=== PATIENT | female | born 1965 | race Caucasian/White ===

== ENCOUNTER 2017-12-10 13:28 | Observation (INO) | payer BC, OTHER ==
[2017-12-10 14:12] LABS: Basophils # (A) 0.1 k/uL (0-0.2); Basophils % (A) 1 %; Eosinophils # (A) 0.1 k/uL (0-0.7); Eosinophils % (A) 2 %; HCT 39.2 % (34.0-46.0); HGB 13.2 gm/dL (11.4-16.0); Lymphocytes # (A) 1.7 k/uL (1.0-4.8); Lymphocytes % (A) 20 %; MCH 30.3 pg (25.0-35.0); MCHC 33.6 g/dL (31.0-37.0); MCV 90.3 fL (80.0-100.0); Mean Platelet Volume 7.5; Monocytes # (A) 0.4 k/uL (0-1.0); Monocytes % (A) 5 %; Neutrophils # (A) 6.1 k/uL (1.3-7.7); Neutrophils % (A) 71 %; Platelet Count 222 k/uL (150-450); RBC 4.34 m/uL (3.80-5.40); RDW 12.8 % (11.5-15.5); WBC 8.6 k/uL (3.8-10.6)
[2017-12-10 14:22] LABS: INR 0.9 (<1.2); Partial Thromboplastin Time 22.4 sec (22.0-30.0); Prothrombin Time 9.3 sec (9.0-12.0)
[2017-12-10 14:27] LABS: Albumin 4.2 g/dL (3.5-5.0); Calcium 9.4 mg/dL (8.4-10.2); Total Bilirubin 0.7 mg/dL (0.2-1.3); Total Protein 7.1 g/dL (6.3-8.2)
[2017-12-10 14:59] LABS: Creatine Kinase 51 U/L (30-135)
[2017-12-10 15:11] LABS: Creatine Kinase MB 0.4 ng/mL (0.0-2.4); Troponin I <0.012 ng/mL (0.000-0.034)
--- NOTE | 2017-12-10 17:10 | ED ---
General Adult HPI - General Chief complaint: Chest Pain Stated complaint: SOB/Chest Pains Time Seen by Provider: 12/10/17 16:40 Source: patient, RN notes reviewed Mode of arrival: wheelchair Limitations: no limitations - History of Present Illness Initial comments: Patient is a 52-year-old female presenting to the emergency room today with chief complaint of chest pain that began 2 nights ago. Patient denies any injury or trauma to the area. She does admit that seems to be worse with certain movements at time. She states today she was at a park show when she was up walking around seemed like symptoms were increasing so she decided to come here to the emergency room. She states it's a constant pain but at times increases and is sharp. She states she did feel some radiation going towards the back of her neck area. Patient states she's never had similar symptoms quite like this. She states she did try ibuprofen no relief. Patient does admit that it's worse when she takes a deep breath at times. She denies any other complaints or symptoms currently. Patient denies any recent fever, chills , back pain, abdominal pain, nausea or vomiting, numbness or tingling, dysuria or hematuria, constipation or diarrhea, headaches or visual changes, or any other complaints. - Related Data Home Medications Medication Instructions Recorded Confirmed Lisinopril [Zestril] 10 mg PO DAILY 12/10/17 12/10/17 Allergies Allergy/AdvReac Type Severity Reaction Status Date / Time No Known Allergies Allergy Verified 12/10/17 13:36 Review of Systems ROS Statement: Those systems with pertinent positive or pertinent negative responses have been documented in the HPI. ROS Other: All systems not noted in ROS Statement are negative. Past Medical History Past Medical History: No Reported History History of Any Multi-Drug Resistant Organisms: None Reported Additional Past Surgical History / Comment(s): mitral valve repair Past Psychological History: No Psychological Hx Reported Smoking Status: Never smoker Past Alcohol Use History: Occasional Past Drug Use History: None Reported General Exam - General Exam Comments Initial Comments: General: The patient is awake and alert, in no distress, and does not appear acutely ill. Eye: Pupils are equal, round and reactive to light, extra-ocular movements are intact. No nystagmus. There is normal conjunctiva bilaterally. No signs of icterus. Ears, nose, mouth and throat: There are moist mucous membranes and no oral lesions. Neck: The neck is supple, there is no tenderness or JVD. Cardiovascular: There is a regular rate and rhythm. No murmur, rub or gallop is appreciated. Mild tenderness on palpation to the anterior chest wall. Respiratory: Lungs are clear to auscultation, respirations are non-labored, breath sounds are equal. No wheezes, stridor, rales, or rhonchi. Musculoskeletal: Normal ROM, no tenderness. Strength 5/5. Sensation intact. Pulses equal bilaterally 2+. Neurological: A&O x 3. CN II-XII intact, There are no obvious motor or sensory deficits. Coordination appears grossly intact. Speech is normal. Skin: Skin is warm and dry and no rashes or lesions are noted. Psychiatric: Cooperative, appropriate mood & affect, normal judgment. Limitations: no limitations Course Vital Signs 12/10/17 12/10/17 12/10/17 13:31 17:10 18:49 Temperature 98.2 F Pulse Rate 86 76 Pulse Rate [ 87 Apical] Respiratory 18 18 Rate Blood Pressure 121/80 125/77 O2 Sat by Pulse 98 99 Oximetry EKG Findings - EKG Comments: EKG Findings:: EKG performed at 1348: Normal sinus rhythm at 84 beats per minute. KS interval 116. QRS 86. QT/QTC 386/456. No acute ST changes. Medical Decision Making - Medical Decision Making Patient reexamined at this time still experiencing some chest discomfort. Patient's labs been reviewed and negative cardiac enzymes. EKG shows no acute changes. Patient's d-dimer was elevated and a CAT scan was performed and obtained showing no evidence of PE. No other acute abnormality on computed tomography scan. Patient will be admitted for observation and serial cardiac enzymes with consult cardiology. Case was discussed with admitting physician Dr. Dimas who will admit The patient. - Lab Data Result diagrams: 12/10/17 13:55 12/10/17 13:55 Lab Results 12/10/17 12/10/17 12/10/17 Range/Units 13:55 13:55 13:55 WBC 8.6 (3.8-10.6) k/uL RBC 4.34 (3.80-5.40) m/uL Hgb 13.2 (11.4-16.0) gm/dL Hct 39.2 (34.0-46.0) % MCV 90.3 (80.0-100.0) fL MCH 30.3 (25.0-35.0) pg MCHC 33.6 (31.0-37.0) g/dL RDW 12.8 (11.5-15.5) % Plt Count 222 (150-450) k/uL Neutrophils % 71 % Lymphocytes % 20 % Monocytes % 5 % Eosinophils % 2 % Basophils % 1 % Neutrophils # 6.1 (1.3-7.7) k/uL Lymphocytes # 1.7 (1.0-4.8) k/uL Monocytes # 0.4 (0-1.0) k/uL Eosinophils # 0.1 (0-0.7) k/uL Basophils # 0.1 (0-0.2) k/uL PT (9.0-12.0) sec INR (<1.2) APTT (22.0-30.0) sec D-Dimer (<0.60) mg/L FEU Sodium 140 (137-145) mmol/L Potassium 4.0 (3.5-5.1) mmol/L Chloride 107 (98-107) mmol/L Carbon Dioxide 23 (22-30) mmol/L Anion Gap 10 mmol/L BUN 17 (7-17) mg/dL Creatinine 0.96 (0.52-1.04) mg/dL Est GFR (CKD-EPI)AfAm 79 (>60 ml/min/1.73 sqM) Est GFR (CKD-EPI)NonAf 69 (>60 ml/min/1.73 sqM) Glucose 114 H (74-99) mg/dL Calcium 9.4 (8.4-10.2) mg/dL Total Bilirubin 0.7 (0.2-1.3) mg/dL AST 18 (14-36) U/L ALT 21 (9-52) U/L Alkaline Phosphatase 60 (38-126) U/L Total Creatine Kinase 51 (30-135) U/L CK-MB (CK-2) 0.4 (0.0-2.4) ng/mL CK-MB (CK-2) Rel Index 0.8 Troponin I <0.012 (0.000-0.034) ng/mL Total Protein 7.1 (6.3-8.2) g/dL Albumin 4.2 (3.5-5.0) g/dL 12/10/17 12/10/17 Range/Units 13:55 13:55 WBC (3.8-10.6) k/uL RBC (3.80-5.40) m/uL Hgb (11.4-16.0) gm/dL Hct (34.0-46.0) % MCV (80.0-100.0) fL MCH (25.0-35.0) pg MCHC (31.0-37.0) g/dL RDW (11.5-15.5) % Plt Count (150-450) k/uL Neutrophils % % Lymphocytes % % Monocytes % % Eosinophils % % Basophils % % Neutrophils # (1.3-7.7) k/uL Lymphocytes # (1.0-4.8) k/uL Monocytes # (0-1.0) k/uL Eosinophils # (0-0.7) k/uL Basophils # (0-0.2) k/uL PT 9.3 (9.0-12.0) sec INR 0.9 (<1.2) APTT 22.4 (22.0-30.0) sec D-Dimer 3.25 H (<0.60) mg/L FEU Sodium (137-145) mmol/L Potassium (3.5-5.1) mmol/L Chloride (98-107) mmol/L Carbon Dioxide (22-30) mmol/L Anion Gap mmol/L BUN (7-17) mg/dL Creatinine (0.52-1.04) mg/dL Est GFR (CKD-EPI)AfAm (>60 ml/min/1.73 sqM) Est GFR (CKD-EPI)NonAf (>60 ml/min/1.73 sqM) Glucose (74-99) mg/dL Calcium (8.4-10.2) mg/dL Total Bilirubin (0.2-1.3) mg/dL AST (14-36) U/L ALT (9-52) U/L Alkaline Phosphatase (38-126) U/L Total Creatine Kinase (30-135) U/L CK-MB (CK-2) (0.0-2.4) ng/mL CK-MB (CK-2) Rel Index Troponin I (0.000-0.034) ng/mL Total Protein (6.3-8.2) g/dL Albumin (3.5-5.0) g/dL Disposition Clinical Impression: Chest pain Disposition: ADMITTED IP TO THIS HOSP Condition: Good Is patient prescribed a controlled substance at d/c from ED?: No Referrals: Nonstaff,Physician [Primary Care Provider] - 1-2 days Time of Disposition: 18:40
--- NOTE | 2017-12-10 18:16 | CT ---
CT CHEST FOR PULMONARY EMBOLISM. EXAMINATION TYPE: CT angio chest DATE OF EXAM: 12/10/2017 INDICATION: Chest pain. CT DLP: 536 mGycm, Automated exposure control for dose reduction was used. CONTRAST: Patient injected with 74ml mL of Isovue 370. COMPARISON: None TECHNIQUE: CT of the chest is performed on a spiral scan at 2 mm thick sections. Study is performed with intravenous contrast timed for evaluation for pulmonary embolism. This will limit additional po rtions of the evaluation. 3-D MIP images reconstructed by the technologist are reviewed on the compu ter in the coronal and sagittal planes. FINDINGS: No persistent filling defects are evident to suggest an acute pulmonary embolism. No mediastinal or hilar adenopathy enlarged by CT criteria is evident. The ascending aorta diameter at the level of the main pulmonary artery is 3.1 cm. The main pulmonary artery diameter at the bifur cation is 2.8 cm. Some mild compressive atelectasis is within the dependent portion of the right lung. Limited CT section through the upper abdomen are unremarkable. IMPRESSIONS: 1. No acute pulmonary embolism.
--- NOTE | 2017-12-10 18:26 | XR ---
EXAMINATION TYPE: XR chest 2V DATE OF EXAM: 12/10/2017 COMPARISON: None INDICATION: Pain TECHNIQUE: Frontal and lateral views of the chest are obtained. FINDINGS: The heart size is normal. The pulmonary vasculature is normal. Minimal tenting of the right diaphragm is present compatible with atelectasis. There is a rib resecti on of posterior sixth rib.. IMPRESSION: 1. Minimal subsegmental atelectasis right base
[2017-12-10] MEDS ORDERED: MORPHINE SULFATE 4 MG/ML SYRINGE IVP STA (18:48)
[2017-12-10] MEDS ORDERED: NITROGLYCERIN SL TABS 0.4 MG TAB SUBLINGUAL PRN ×2 (18:49→18:54)
[2017-12-10] MEDS ORDERED: ONDANSETRON 4 MG/2 ML VIAL IVP STA (18:49)
[2017-12-10] MEDS ORDERED: ASPIRIN 81 MG PO STA (18:54)
[2017-12-10] MEDS ORDERED: SODIUM CHLORIDE 0.9% 1,000 ML IV ONE (18:54)
[2017-12-10 21:14] LABS: Creatine Kinase 43 U/L (30-135)
[2017-12-10 21:28] LABS: Creatine Kinase MB 0.4 ng/mL (0.0-2.4); Troponin I <0.012 ng/mL (0.000-0.034)
[2017-12-10] MEDS ORDERED: MORPHINE SULFATE 2 MG/ML SYRINGE IVP PRN (22:58)
--- NOTE | 2017-12-10 23:12 | HP ---
HISTORY AND PHYSICAL CHIEF COMPLAINT: A 52-year-old with pleuritic-type chest pain. HISTORY OF PRESENT ILLNESS: A 52-year-old white female, doing a lot of moving, moving to a different place, moving a lot of boxes over the past week. Her brother also had a heart attack with a stent placed a week ago. She was walking around at a park. She came to the emergency room because she said when she took a deep breath or made certain movements, she had some chest pain. It feels like pressure right under the sternum, a constant pain that at times is sharp. Never had symptoms like this before, took 3 ibuprofen, No relief. Worse when takes a deep breath. She mentions she was lifting boxes recently. No history of trauma. No nausea, vomiting, numbness, tingling, dysuria or hematuria, constipation, diarrhea, headaches or visual changes. HOME MEDICATIONS: Zestril 10 mg daily. ALLERGIES: Negative. REVIEW OF SYSTEMS: Fourteen point review of systems negative except for mentioned in HPI. PAST MEDICAL HISTORY: Hypertension, mitral valve replacement. Temp 98.2, blood pressure 120s/70s-80s, pulse 76-86, respiratory rate 16-18, O2 98%- 99%. EKG: Sinus rhythm, no ischemia. CARDIOVASCULAR: S1, S2. Lungs are clear. GI: Soft. HEMATOLOGY: Negative Homans. PSYCH: Fair mood and affect. NEUROLOGIC: Alert and oriented x3. ENDOCRINE: Weight is reviewed. CT of the chest is normal. Sodium 140, potassium 4.0, BUN is 17, creatinine 0.96. White count and hemoglobin are all normal. Troponins, CPKs are negative x2. ASSESSMENT: Atypical chest pain, rule out myocardial infarction. Cardiology is consulted. Will continue with serial troponins and order a thyroid and hemoglobin A1c. Please see further orders. MMODL / IJN: [id number] /
[2017-12-10 23:13] VITALS: BMI 27.3
[2017-12-11 02:17] LABS: Cholesterol 163 mg/dL (<200); HDL Cholesterol 53 mg/dL (40-60); LDL Cholesterol,Calculated 85 mg/dL (0-99); Triglycerides 124 mg/dL (<150)
[2017-12-11 02:25] LABS: Creatine Kinase 42 U/L (30-135)
[2017-12-11 02:36] LABS: Creatine Kinase MB 0.3 ng/mL (0.0-2.4); Troponin I <0.012 ng/mL (0.000-0.034)
[2017-12-11] MEDS ORDERED: ACETAMINOPHEN TAB 325 MG TAB PO PRN (06:49)
--- NOTE | 2017-12-11 07:46 | US ---
EXAMINATION TYPE: US gallbladder DATE OF EXAM: 12/11/2017 COMPARISON: NONE CLINICAL HISTORY: abd pain. EXAM MEASUREMENTS: Liver Length: 16.1 cm Gallbladder Wall: 0.1 cm CBD: 0.3 cm Right Kidney: 12.0 x 3.6 x 5.2 cm Midline bowel gas. Pancreas: Mostly obscured by bowel gas Liver: wnl Gallbladder: mobile echogenic focus seen in supine position, possible non shadowing stone Evidence for sonographic Mei's sign: no CBD: wnl Right Kidney: wnl The pancreas is largely obscured. The liver is normal in size without biliary dilatation. There are noncalcified gallstones present. The gallbladder wall measures 1 mm. The distal common hepa tic duct measures 3 mm. There is no sonographic Mei's sign. The right kidney is normal. IMPRESSION: PROBABLE NONSHADOWING STONES.
[2017-12-11] MEDS ORDERED: LISINOPRIL 10 MG TAB PO SCH ×2 (09:00→21:00)
--- NOTE | 2017-12-11 10:59 | US ---
EXAMINATION TYPE: US venous doppler duplex LE DATE OF EXAM: 12/11/2017 10:47 AM COMPARISON: NONE CLINICAL HISTORY: r/o DVT. SIDE PERFORMED: Bilateral TECHNIQUE: The lower extremity deep venous system is examined utilizing real time linear array sonog andreas with graded compression, doppler sonography and color-flow sonography. VESSELS IMAGED: External Iliac Vein (EIV) Common Femoral Vein Deep Femoral Vein Greater Saphenous Vein * Femoral Vein Popliteal Vein Small Saphenous Vein * Proximal Calf Veins (* superficial vessels) Right Leg: Negative for DVT Left Leg: Negative for DVT No popliteal fossa lesion is seen. IMPRESSION: THIS EXAMINATION IS NEGATIVE FOR DVT IN BOTH LEGS.
--- NOTE | 2017-12-11 11:55 | CONS ---
CONSULTATION DATE OF SERVICE: 12/11/2017. HISTORY: Mrs. Velez is a 52-year-old female, who is seen for the evaluation of chest pain. The patient gives a history that she recently moved from the [facility] to [place] and she was moving a lot of packaging and lifting things and she started having discomfort in the chest, which was in the substernal area as well as in the back and front of the chest. The pain was constant and increased with movement and breathing. She did not had any significant shortness of breath. She denied any fever or chills. The patient tried ibuprofen but it did not work very well. Subsequently she came to the emergency room. This patient has a history of mitral valve repair for mitral regurgitation in 2009, which was done at the [facility]. The patient is to be following a doctor at [facility]. HOME MEDICATIONS: Includes Zestril 10 mg daily. PAST MEDICAL HISTORY: Includes a history of mitral valve repair. SOCIAL HISTORY: Patient is a never smoker. PHYSICAL EXAMINATION: Reveals a 52-year-old female, who does not appear to be in any acute distress. The patient's blood pressure is 100/67 mmHg. The patient is afebrile, heart rate is 75 per minute, oxygen saturation is 100%. HEENT: Examination is negative. NECK: Supple. There is no increase in jugular venous pressure. Both the carotid pulses are felt. There is no bruit. CHEST: Symmetrical. HEART: First and second sounds are normal. There is no evidence of any murmur. LUNGS: Clinically clear to auscultation and percussion. ABDOMEN: Negative. EXTREMITIES: Peripheral pulses are 2+. DIAGNOSTIC STUDIES: The patient's EKG is normal. Electrolytes are normal. Three sets of troponins are normal. Patient's D-dimer was elevated up to 3.25. CT scan was negative for pulmonary embolism. FINAL IMPRESSION: 1. This patient's chest pain appears to be atypical chest pain, mostly musculoskeletal chest wall pain. There is no evidence of pulmonary embolism. 2. The patient is status post mitral valve repair. 3. The patient has elevated D-dimer which is difficult to explain. There is no clinical evidence of DVT but we will check a venous duplex study to make sure there is no evidence of any DVT. If the venous duplex study is negative, she will be evaluated with a stress echo and echocardiographic study. If the stress echo study is negative, patient can be discharged home tomorrow. MMODL / IJN: [id number] /
[2017-12-11] MEDS: ASPIRIN 325 MG TAB PO SCH (12:38)
[2017-12-11] MEDS ORDERED: MORPHINE ORAL SOLN 10 MG/5 ML CUP PO PRN (21:15)
--- NOTE | 2017-12-11 22:40 | PN ---
PROGRESS NOTE SUBJECTIVE: 52-year-old white female who has a positive bowel sounds on ultrasound. Liver enzymes not elevated. Her pain in her chest is not related to food intake. If it was, I would think she had a bad gallbladder. She has been ruled out for myocardial infarction. Cardiology wants to do a stress echo prior to discharge because her brother just had a stent put a week ago and she is very nervous and there is no clear cut reason for chest pain. CT scan of the chest is negative. Vital signs is stable. Temp 98.1, respiratory 16-18, pulse 70 - 74, blood pressure 98 to 103 over 60s. O2 97 to 99% on room air. Cardiovascular: S1, S2. Lungs GI soft. Hematology negative Homans. Lungs clear. ASSESSMENT: 1. Cholelithiasis. 2. Atypical chest pain. Stress echo in the morning. 3. Hypertension, low grade. She is on medications at home. Continue that now. Follow up for possible discharge home tomorrow. shows 163. She has LDL. Thyroid is good. We will do a hemoglobin A1c and I do not see that it was done. Please see further orders. MMODL / IJN: [id number] /
[2017-12-12 07:50] LABS: ALT 25 U/L (9-52); AST 18 U/L (14-36); Albumin 3.9 g/dL (3.5-5.0); Alkaline Phosphatase 59 U/L (38-126); Anion Gap 6 mmol/L; Blood Urea Nitrogen 13 mg/dL (7-17); Calcium 9.3 mg/dL (8.4-10.2); Carbon Dioxide 29 mmol/L (22-30); Chloride 104 mmol/L (98-107); Glucose 89 mg/dL (74-99); Potassium 4.4 mmol/L (3.5-5.1); Sodium 139 mmol/L (137-145); Total Bilirubin 0.4 mg/dL (0.2-1.3); Total Protein 6.8 g/dL (6.3-8.2)
[2017-12-12 08:03] VITALS: RESP 16
[2017-12-12 11:38] LABS: Hemoglobin A1C 4.9 % (4.0-6.0)
[2017-12-12 12:09] VITALS: BP 108/74; PULSE 81; TEMP 98.5
[2017-12-12] MEDS: ASPIRIN 325 MG TAB PO SCH (13:17)
--- NOTE | 2017-12-12 13:45 | P.PN ---
Subjective Mrs. Velez is seen and examined sitting up in the chair in no acute distress. She states she has been up walking the unit and has had no further symptoms of chest discomfort. She denies shortness of breath, palpitations, dizziness, nausea, vomiting or diaphoresis. Blood pressure 108/74 heart rate 81 afebrile maintaining oxygen saturation on room air. Stress echocardiogram was performed this morning. Test was reviewed by Dr. Dickey and is negative for stress-induced cardiac ischemia. Objective - Vital Signs Vital signs: Vital Signs Temp 98.5 F 12/12/17 12:00 Pulse 81 12/12/17 12:00 Resp 16 12/12/17 12:00 BP 108/74 12/12/17 12:00 Pulse Ox 99 12/12/17 12:00 Intake & Output 12/11/17 12/12/17 12/12/17 18:59 06:59 18:59 Intake Total 358 600 Balance 358 600 Weight 79.379 kg Intake: Oral 358 600 Other: Voiding Method Toilet Toilet Toilet # Voids 1 - Exam GENERAL: Well-appearing, well-nourished and in no acute distress. NECK: Supple without JVD or thyromegaly. LUNGS: Breath sounds clear to auscultation bilaterally. Respiration equal and unlabored. No wheezes, rales or rhonchi. HEART: Regular rate and rhythm without murmurs, rubs or gallops. S1 and S2 heard. EXTREMITIES: Normal range of motion, no edema. No clubbing or cyanosis. Peripheral pulses intact. - Labs CBC & Chem 7: 12/10/17 13:55 12/12/17 07:07 Assessment and Plan Assessment: ASSESSMENT Chest pain, atypical. An acute coronary event has been ruled out with no EKG evidence of ischemia and negative cardiac enzymes. Negative for pulmonary embolism. Pain has some musculoskeletal factors. History of mitral valve repair 2009 with subsequent mitral valve regurgitation per the patient. Hypertension, maintained on lisinopril PLAN Patient has undergone stress echocardiogram which reveals no evidence of stress- induced cardiac ischemia. Stable from a cardiac perspective. Follow-up with her primary [facility] upon discharge. Nurse Practitioner note has been reviewed, I agree with a documented findings and plan of care. Patient was seen and examined.
--- NOTE | 2017-12-12 13:50 | EST ---
EXERCISE STRESS DATE OF SERVICE: 12/12/2017 INDICATION: Chest discomfort. AGE: 52 SEX: F HT: 67 WT: 175 PROTOCOL: Stress Echo STAGE: III DURATION OF EXERCISE: 9:01 HEART RATE REST: 73 BLOOD PRESSURE REST: 114/74 MAXIMUM HEART RATE ACHIEVED: 163 MAXIMUM BLOOD PRESSURE: 178/51 85% MPHR: 144 100% MPHR: 169 METS: 10.5 CLINICAL INFORMATION: STRESS DATA: Pretesting physical examination showed a heart rate of 73, pressure is 114/74 mmHg. Baseline EKG shows sinus mechanism. The patient exercised on the treadmill according to Garth protocol for a total of 9 minutes and achieved 10.5 METS. Max heart rate was 163, which is about 96% of maximum predicted heart rate. Maximum blood pressure was 178/51 mmHg. Clinically, the patient did not have any symptoms of chest pain or chest discomfort during the testing or at recovery. The EKG did not show any ischemic ST or T-wave abnormalities. ECHOCARDIOGRAM IMAGES: On echocardiogram images from parasternal long axis view, parasternal short axis view, apical 4 chamber view and apical 2 chamber view were obtained as a baseline images, at the peak of the heart rate as well as on recovery. The echocardiogram images did not reveal any obvious wall motion abnormalities concerning for ischemia. CONCLUSION: 1. Excellent exercise tolerance. 2. Normal EKG in response to exercise. 3. Normal echocardiogram in response to exercise. MMODL / IJN: [id number] /
--- NOTE | 2017-12-14 12:52 | ECHOF ---
Referral Reason:chest pain MEASUREMENTS -------- HEIGHT: 170.2 cm WEIGHT: 77.1 kg BP: RVIDd: 2.8 cm (< 3.3) IVSd: 0.7 cm (0.6 - 1.1) LVIDd: 4.3 cm (3.9 - 5.3) LVPWd: 1.0 cm (0.6 - 1.1) IVSs: 0.8 cm LVIDs: 4.1 cm LVPWs: 1.1 cm LA Diam: 3.8 cm (2.7 - 3.8) LAESV Index (A-L): 29.68 ml/m Ao Diam: 2.6 cm (2.0 - 3.7) AV Cusp: 1.9 cm (1.5 - 2.6) LA Diam: 3.8 cm (2.7 - 3.8) MV EXCURSION: 18.048 mm (> 18.000) MV EF SLOPE: 47 mm/s (70 - 150) EPSS: 0.6 cm MV E Italo: 1.77 m/s MV DecT: 368 ms MV A Italo: 1.04 m/s MV E/A Ratio: 1.70 RAP: 5.00 mmHg RVSP: 36.98 mmHg FINDINGS -------- Sinus rhythm. This was a technically difficult study with suboptimal views. The endocardium was not well seen. Th e EF is difficult to assess but likely to be normal. The left ventricular size is normal. There is borderline concentric left ventricular hypertrophy. Overall left ventricular systolic function is low-normal with, an EF between 50 - 55 %. The right ventricle is normal in size. The left atrial size is normal. LA is midly dilated 29-33ml/m2. The right atrial size is normal. Moderate mitral regurgitation is present. The peak and mean MV gradients are 14.14mmHg 5.69mmHg as measured by doppler. Mitral ring annulloplasty is in place. Mild tricuspid regurgitation present. Right ventricular systolic pressure is normal at < 35 mmHg. There is no evidence of pulmonary hypertension. There is no pulmonic regurgitation present. The aortic root size is normal. There is no pericardial effusion. CONCLUSIONS -------- 1. This was a technically difficult study with suboptimal views. 2. The endocardium was not well seen. The EF is difficult to assess but likely to be normal. 3. The left ventricular size is normal. 4. There is borderline concentric left ventricular hypertrophy. 5. Overall left ventricular systolic function is low-normal with, an EF between 50 - 55 %. 6. The right ventricle is normal in size. 7. The left atrial size is normal. 8. LA is midly dilated 29-33ml/m2. 9. The right atrial size is normal. 10. Moderate mitral regurgitation is present. 11. The peak and mean MV gradients are 14.14mmHg 5.69mmHg as measured by doppler. 12. Mitral ring annulloplasty is in place. 13. Mild tricuspid regurgitation present. 14. Right ventricular systolic pressure is normal at < 35 mmHg. 15. There is no evidence of pulmonary hypertension. 16. There is no pulmonic regurgitation present. 17. The aortic root size is normal. 18. There is no pericardial effusion. TOUR LEADER: Amara Calhoun RDCS
== END 2017-12-12 15:00 | disposition home or self-care (01) ==
LOC: EC 13:28 → 3SUR 19:34 → 3OBS 12-11 01:09
PROVIDERS: ADMIT Family Medicine; ATTEND Family Medicine
DX: R07.89 Other chest pain (principal); I10 Essential (primary) hypertension; Z95.2 Presence of prosthetic heart valve; K80.20 Calculus of gallbladder without cholecystitis without obstruction; R79.1 Abnormal coagulation profile; Z79.899 Other long term (current) drug therapy; Z82.49 Family history of ischemic heart disease and other diseases of the circulatory system
CPT/HCPCS: 96376 ×2; 96374; 96375; 99285; 36415; 94760; 93306; 93351; 85379; 80061; 80053 ×2; 84443; 82550 ×2; 82553 ×2; 84484 ×2; 85025; 85610; 85730; 83036; 71046; 76705; 93970; 71275; G0378 ×3; J2270 ×2; J2405; Q9950; Q9967